=== PATIENT | male | born 1965 | race Caucasian/White ===

== ENCOUNTER 2016-11-11 10:06 | Day surgery (SDC) | payer OTHER ==
[~2016-11-11] VITALS: Ht 175.3 cm; Wt 71.2 kg
[2016-11-11 11:18] VITALS: Ht 175.3 cm; Wt 71.2 kg
[2016-11-11] MEDS ORDERED: NO HOME MEDS (11:25)
[2016-11-11 11:40] VITALS: BP 126/79; PULSE 50; RESP 12
[2016-11-11] MEDS ORDERED: PROPOFOL 40 ML ONE (11:44)
[2016-11-11] MEDS ORDERED: FENTAnyl 50 MCG/ML VIAL ONE (11:44)
[2016-11-11] MEDS ORDERED: MIDAZOLAM 1 MG/ML 2 ML INJ ONE (11:44)
[2016-11-11 12:40] VITALS: BP 109/76; PULSE 54; RESP 18
--- NOTE | 2016-11-11 13:17 | GILP ---
DATE OF PROCEDURE: NAME OF PROCEDURES: 1. Esophagogastroduodenoscopy and biopsy. 2. Screening colonoscopy. SURGEON: Cece Tyson MD PREOPERATIVE DIAGNOSES: 1. Chronic heartburn. 2. Rectal bleeding. POSTOPERATIVE DIAGNOSES: 1. Gastroesophageal reflux disease with Whitaker esophagus at the lower end. 2. Biopsies were taken for histopathology. 3. Gastritis with erosions. 4. Gastric mucosal biopsies were taken for Helicobacter pylori test. 5. Colonoscopy all the way to the cecum. 6. Internal hemorrhoids. 7. No colon neoplasm was identified. INDICATION FOR THE PROCEDURE: Mr. Mohan Slater is a 51-year-old male patient who had chronic hear tburn not responding to therapy. He also had rectal bleeding off and on. The patient was scheduled for endoscopy and colonoscopy for further evaluation. The procedures and possible complications were well explained to the patient. He understood and con sented to the procedure. DESCRIPTION OF PROCEDURE: Under the influence of anesthesia, the gastroscope was carefully introduc ed into the esophagus and, under direct vision, it was advanced to the stomach and through the pylor us into the duodenal bulb and descending duodenum. FINDINGS: ESOPHAGUS: The patient had gastroesophageal reflux disease with Whitaker esophagus at the lower end. Mucosal biopsies were taken for histopathology. STOMACH: The patient had gastritis with erosions. Gastric mucosal biopsies were taken for H pylori test. DUODENUM: Normal. The colonoscope was carefully introduced in the rectum and, under direct vision, it was advanced all the way to the cecum. FINDINGS: The patient had internal hemorrhoids. No colitis or neoplasm were identified. He tolerated the procedures very well, and there were no complication from the procedures. At the e nd of the procedures, he was awake with stable vital signs, and he was discharged home to the care o f his family. IMPRESSION: 1. Gastroesophageal reflux disease. 2. Whitaker esophagus at the lower end, and biopsies were taken for histopathology. 3. Gastritis with erosions. 4. Gastric mucosal biopsies were taken for Helicobacter pylori test. 5. Colonoscopy all the way to the cecum. 6. Internal hemorrhoids. 7. No colitis or neoplasm was identified. PLAN: 1. Pantoprazole 40 mg p.o. q.a.m. 2. Zantac 300 mg p.o. at bedtime. 3. Await histopathology reports. 4. Next screening colonoscopy in 10 years. Dictated By: CECE MURRY/RICHA Conf#: [id number] DID#: [id number] CC: CECE TYSON MD;*[facility]*
== END 2016-11-11 13:56 | disposition home or self-care (01) ==
LOC: GIL 10:06
PROVIDERS: ATTEND Internal Medicine Gastroenterology
DX: Z12.11 Encounter for screening for malignant neoplasm of colon (principal); K22.70 Barrett's esophagus without dysplasia; K21.9 Gastro-esophageal reflux disease without esophagitis; K29.60 Other gastritis without bleeding; K64.8 Other hemorrhoids
CPT/HCPCS: 43239; 45378; 87081; 88305; 88312; 88313; J2250; J3010; Z7610